=== PATIENT | male | born 2000 | race Hispanic/Latino ===

== ENCOUNTER 2023-12-24 21:10 | Emergency (ER) | payer BC ==
[~2023-12-24] VITALS: Ht 170.2 cm; Wt 64.9 kg
[2023-12-24 21:34] LABS: RAPID GROUP A STREP negative (NEGATIVE)
[2023-12-24 21:36] VITALS: BP 123/74; TEMP 98.1; O2SAT 99
[2023-12-24 21:39] LABS: SARS-CoV-2, RNA, NAAT NEGATIVE SARS CoV-2 (NEGATIVE)
[2023-12-24] MEDS: AMOX/CLAV 875/125MG TAB PO ONE (21:44)
[2023-12-24] MEDS: dexaMETHasone SOD PHOSPHATE 4 MG/ML 1ML VIAL IM ONE (21:44)
[2023-12-24] MEDS: ALBUTEROL 0.083% 2.5 MG/3 ML INH IH ONE (21:54)
[2023-12-24 21:56] VITALS: PULSE 102; RESP 20
[2023-12-24] MEDS ORDERED: IVER3 PO (22:01)
[2023-12-24] MEDS ORDERED: AMOX1TAB16 PO (22:01)
[2023-12-24] MEDS ORDERED: DIPH50 PO (22:01)
[2023-12-24] MEDS ORDERED: ALBUHFA IH (22:01)
[2023-12-24 22:02] LABS: INFLUENZA TYPE B Negative For Type B (NEGATIVE)
[2023-12-24 22:14] LABS: INFLUENZA TYPE A Positive For Type A (NEGATIVE)
== END 2023-12-24 22:21 | disposition home or self-care (01) ==
LOC: EDH 21:10
DX: B86 Scabies (principal); J98.01 Acute bronchospasm; F17.200 Nicotine dependence, unspecified, uncomplicated; Z20.822 Contact with and (suspected) exposure to COVID-19; Z90.89 Acquired absence of other organs
CPT/HCPCS: 99284; 87635; 87880; 87804 ×2; 96372; 94640; J1100

== ENCOUNTER 2024-10-11 10:49 | Emergency (ER) | payer BC ==
[~2024-10-11] VITALS: Ht 170.2 cm; Wt 66.2 kg
[~2024-10-11 10:49] MED LIST: ALBUHFA IH; AMOX1TAB16 PO; DIPH50 PO; IVER3 PO
--- NOTE | 2024-10-11 11:29 | ERN ---
ED Note History of Present Illness Stated Complaint: PAINFUL RECTUM Chief Complaint: Other Problems Time Seen by MD: 10:52 Dictation: PATIENT IS A 23-YEAR-OLD MALE WITH A HISTORY OF HEMORRHOIDS COMING IN TODAY WITH COMPLAINTS OF PAINFUL STOOLS HE HAS HAD FOR THE LAST 3-4 DAYS. NO RECTAL BLEEDING AT THIS TIME. STATES HE HAS BEEN PUTTING AN [id number] PREPARATION CREAM FOR HIS HEMORRHOIDS THAT IS NOT HELPING. PATIENT HAS NOT BEEN TO HIS PRIMARY CARE DOCTOR IN [facility]. NEVER HAD SURGERY. ALSO DENIES ANY SEXUAL ACTIVITY GUARDING HIS RECTUM. Allergies: Coded Allergies: No Known Allergies (Unverified Allergy, Unknown, 12/24/23) Home Meds Active Scripts Diphenhydramine HCl (Benadryl) 50 Mg Cap, 50 MG PO Q6H for itching/rash, #20 CAP 0 Refills Prov:NATHALIE SOTO NP 12/24/23 Ivermectin (Stromectol) 3 Mg Tab, 3 MG PO ONCE, #10 TAB Take five tablets p.o. x1 dose May repeat in 10 days. Prov:NATHALIE SOTO NP 12/24/23 Albuterol Sulfate (Ventolin Hfa/Proventil Hfa/Proair Hfa) 90 Mcg Puff, 2 PUFF IH Q4H for WHEEZING, #1 INHALER 0 Refills Prov:NATHALIE SOTO NP 12/24/23 Amoxicillin/Potassium Clav (Amox Tr-K Clv 875-125 mg Tab) 875 Mg-125 Mg Tablet, 1 EACH PO BID for 7 Days, #14 TAB 0 Refills Prov:NATHALIE SOTO NP 12/24/23 Past Medical History Past Medical History: No Pertinent History Surgical History: None Social History: Smokers, Drugs RN Note Reviewed/Agreed w/PFSH: Yes Review of System Dictation CONSTITUTIONAL: NEGATIVE EXCEPT FOR HPI HEAD/FACE: NEGATIVE EXCEPT FOR HPI EENT: NEGATIVE EXCEPT FOR HPI RESPIRATORY: NEGATIVE EXCEPT FOR HPI GASTROINTESTINAL/ABDOMINAL: NEGATIVE EXCEPT FOR HPI RECTAL PAIN GENITOURINARY: NEGATIVE EXCEPT FOR HPI MUSCULOSKELETAL: NEGATIVE EXCEPT FOR HPI INTEGUMENTARY: NEGATIVE EXCEPT FOR HPI NEUROLOGICAL/PSYCH: NEGATIVE EXCEPT FOR HPI HEMATOLOGIC/LYMPHATIC: NEGATIVE EXCEPT FOR HPI ALL SYSTEMS NEGATIVE, EXCEPT NOTED ABOVE. 13 POINT REVIEW OF SYSTEMS ASSESSED AND ALL NEGATIVE EXCEPT FOR ABOVE. Initial Vital Sign VS Vital Signs Date Time Temp Pulse Resp B/P (MAP) Pulse Ox O2 Delivery O2 Flow Rate FiO2 10/11/24 10:50 97.2 72 16 111/70 95 Room Air 0 10/11/24 11:32 21 Physical Exam Dictation VITAL SIGNS REVIEWED GENERAL APPEARANCE: ALERT, ORIENTED X 3, MODERATE ACUTE DISTRESS, WELL DEVELOPED, NOURISHED. HEAD AND FACE: NON-TRAUMATIC. EYES: PERRL, PINK CONJUNCTIVAS, EYELID NO TRAUMA, ANTERIOR CHAMBER WITH ARCUS SENILIS. EARS: PINNAS INTACT AND NO SIGNS OF TRAUMA OR ERYTHEMA EAR CANALS CLEAR AND NO DISCHARGE TM NO ERYTHEMA NOSE: NO DISCHARGE, NO BLEEDING. OROPHARYNX: MOUTH NORMAL, TONGUE PINK, PHARYNX CLEAR,NO ERYTHEMA, TONSILS NO EXUDATES, NO ABSCESSES NOTED, MUCOUS MEMBRANE MOIST NECK: SUPPLE, NON-TENDER, NO THYROMEGALY, NO MASSES, NO JVD, NO BRUITS BREAST:DEFERRED CHEST:NO TENDERNESS, NO CREPITUS, NO PARADOXICAL MOVEMENT, NO RETRACTIONS LUNGS:CLEAR, WELL-VENTILATED, SYMMETRIC, NO RALES, NO WHEEZING, NO RHONCHI, NO STRIDOR, GOOD BREATH SOUNDS BILATERALLY HEART: REGULAR RATE, REGULAR RHYTHM, NO MURMUR, NO GALLOPS VASCULAR: NO PERIPHERAL EDEMA, ABDOMEN: SOFT, POSITIVE BOWEL SOUNDS, NONDISTENDED, NO GUARDING, NONTENDER, NO REBOUND, NO MASSES NO HEPATOMEGALY, NO SPLENOMEGALY, NO LANE'S SIGN, NO HERNIAS. RECTAL: EXTERNAL EXAM NEGATIVE, TONE IS NORMAL. PATIENT HAS A LARGE NON THROMBOSED INTERNA HEMORRHOID. NO BLOOD PATIENT'S AT BEDSIDE WITH THE EXAM GENITAL: DEFERRED NEUROLOGICAL: NORMAL SPEECH, MOTOR FUNCTION INTACT, SENSORY FUNCTION INTACT MUSCULOSKELETAL: NECK NONTENDER, FULL RANGE OF MOTION, BACK NONTENDER, FULL RANGE OF MOTION, EXTREMITIES: NONTENDER, FULL RANGE OF MOTION SKIN: COLOR PINK, DRY, NO TURGOR, NO RASH, NO LACERATIONS, NO ABRASIONS, NO CONTUSIONS. LYMPHATIC: DEFERRED Results (Laboratory/Radiology) Labs Reviewed?: Yes ED Course ED Course Orders Procedure Category Date Status Time Ibuprofen 800 Mg Tab PHA 10/11/24 Complete (Motrin) 11:30 Current Medications Medications (Trade) Dose Ordered Sig/Erna Route PRN Reason Start Time Stop Time Status Last Admin Dose Admin Ibuprofen (moTRIN) 800 mg ONCE ONCE PO 10/11/24 11:30 10/11/24 11:42 DC 10/11/24 11:45 Vital Signs Date Time Temp Pulse Resp B/P (MAP) Pulse Ox O2 Delivery O2 Flow Rate FiO2 10/11/24 11:32 97.2 72 16 161/70 95 Room Air* 0 21 10/11/24 10:50 97.2 72 16 111/70 95 Room Air 0 NO LABS OR IMAGING INDICATED. PATIENT WILL BE DISCHARGED WITH HIGH-FIBER DIET, HYDROCORTISONE SUPPOSITORIES 25 MG IS NC B.I.D. FOR 14 DAYS GIVEN PAIN MANAGEMENT AND HAVE HIM FOLLOW UP WITH DR. IMANI MELCHOR [facility] SURGEON Medical Decision Making MDM MEDICAL DECISION-MAKING BASED ON PHYSICAL EXAMINATION. PATIENT HAS A LARGE INTERNAL HEMORRHOID NOT THROMBOSED PATIENT GIVEN INSTRUCTIONS ON HIGH-FIBER DIET WE WILL BE PRESCRIBED HYDROCORTISONE SUPPOSITORIES 25 MG NC B.I.D. FOR 14 DAYS IBUPROFEN GIVEN THE NAME OF COLORECTAL SURGERY DX & DISP Disposition: Discharge Departure Impression: Primary Impression: Internal hemorrhoids Condition: Stable Scripts Ibuprofen (Ibuprofen 800 mg Tab) 800 Mg Tab 800 MG PO Q8H PRN for fever or pain, #30 TAB 0 Refills Prov: NATHALIE SOTO NP 10/11/24 Psyllium Husk (with Sugar) (Metamucil Powder) 3.4 Gram/12 Gram Powder 575 GM PO BID for 10 Days, #300 GM 1 TSP IN 8 OZ OF WATER BY MOUTH TWICE A DAY FOR 10 DAYS. Prov: NATHALIE SOTO NP 10/11/24 Hydrocortisone Acetate (Hydrocortisone Acetate) 25 Mg Supp.rect 1 SUPP NC BID for 14 Days, #28 SUPP 0 Refills Prov: NATHALIE SOTO NP 10/11/24 Additional Instructions: FOLLOW-UP WITH PRIMARY CARE PROVIDER IN 1 TO 2 DAYS. TAKE MEDICATIONS DIRECTED HERE IN THE EMERGENCY ROOM. OKAY TO CONTINUE HOME MEDICATIONS UNLESS OTHERWISE DISCUSSED DURING YOUR VISIT IN THE EMERGENCY ROOM TODAY. RETURN TO YOUR NEAREST EMERGENCY ROOM IF SYMPTOMS WORSEN OR IF THERE IS NO IMPROVEMENT. CALL 911 IF YOU NEED IMMEDIATE ASSISTANCE. TAKE TYLENOL OR MOTRIN [id number] NEEDED AND IF NO CONTRAINDICATIONS ARE PRESENT. INCREASE ORAL HYDRATION. A WOUND CULTURE OR URINE CULTURE WAS ORDERED HERE IN THE EMERGENCY ROOM DEPARTMENT PLEASE FOLLOW-UP WITH PRIMARY CARE PROVIDER AND ADVISE THEM TO GET REPEAT PORTS FROM OUR FACILITY. IF YOU HAD ANY ZAHRAA WRAP/SPLINTS THAT WERE APPLIED HERE, PLEASE DO NOT REMOVE THEM UNTIL YOU SEE YOUR PRIMARY CARE OR SPECIALTY. 1 TSP OF METAMUCIL TWICE A DAY AND 8 OZ OF WATER FOR 10 DAYS. USE HYDROCORTISONE SUPPOSITORIES TWICE A DAY DIRECTED FOR 14 DAYS. CALL [facility] SURGEON FOR AN APPOINTMENT IN THE NEXT 1-2 DAYS. INCREASE YOUR WATER INTAKE. Referrals: PILAR TEAGUE MD (PCP) LUNA HANKS MD Time of Disposition: 12:41 I have reviewed the case, and I agree with, Diagnosis and Plan NATHALIE SOTO NP Oct 11, 2024 11:29
[2024-10-11] MEDS ORDERED: PSYL575P22 PO (12:43)
[2024-10-11] MEDS ORDERED: HYDR25SU7 PR (12:43)
[2024-10-11] MEDS ORDERED: IBUP-2077 PO (12:43)
[2024-10-11 12:46] VITALS: BP 148/64; PULSE 68; RESP 16; TEMP 97.2; O2SAT 95
== END 2024-10-11 12:47 | disposition home or self-care (01) ==
LOC: EDH 10:49
DX: K64.8 Other hemorrhoids (principal); F17.200 Nicotine dependence, unspecified, uncomplicated; Z79.899 Other long term (current) drug therapy
CPT/HCPCS: 99282